=== PATIENT | male | born 1975 | race Caucasian/White ===

== ENCOUNTER 2021-10-31 05:37 | Inpatient (IN) | payer BC ==
[~2021-10-31 05:37] MED LIST: Acetaminophen 500 MG Tab PO ONE; Celecoxib 200 MG Cap PO ONE; Scopolamine 1.5 MG Transdermal Patch TRDERM SCH
[2021-10-31] MEDS ORDERED: Dextrose 5%-Lactated Ringers 1,000 ML IV SCH ×2 (06:00→11:00)
[2021-10-31] MEDS ORDERED: cefOXitin 2 GM Vial ONE (06:57)
[2021-10-31] MEDS ORDERED: fentaNYL 250 MCG/5 ML SDV ONE ×2 (07:08→07:34)
[2021-10-31] MEDS ORDERED: Rocuronium 50 MG/5 ML Vial ONE ×2 (07:09→08:10)
[2021-10-31] MEDS ORDERED: Succinylcholine 200 MG/10 ML MDV ONE (07:09)
[2021-10-31] MEDS ORDERED: Glycopyrrolate 0.2 MG/ML 5 ML MDV ONE (07:09)
[2021-10-31] MEDS ORDERED: Ondansetron 4 MG/2 ML SDV ONE (07:09)
[2021-10-31] MEDS ORDERED: Neostigmine Methylsulfate 1 MG/ML 5 ML Syringe ONE (07:09)
[2021-10-31] MEDS ORDERED: Dexamethasone 4 MG/ML SDV ONE (07:09)
[2021-10-31] MEDS ORDERED: Propofol 200 MG/20 ML SDV ONE (07:09)
[2021-10-31] MEDS ORDERED: cefOXitin 2 GM in Sodium Chloride 0.9% 50 ML IV ONE (07:15)
[2021-10-31] MEDS ORDERED: Ketamine 24 MG in Sodium Chloride 0.9% 19.76 ML IV SCH (07:30)
[2021-10-31] MEDS ORDERED: Ketamine 500 MG/5 ML MDV IV SCH (07:30)
[2021-10-31] MEDS ORDERED: Labetalol 20 MG/4 ML Syringe ONE (08:22)
[2021-10-31] MEDS ORDERED: fentaNYL 50 MCG/ML SDV IVPUSH ONE (09:31)
[2021-10-31] MEDS ORDERED: hydrOXYzine HCL 100 MG/2 ML SDV IM ONE (09:31)
[2021-10-31] MEDS ORDERED: Cyclobenzaprine 10 MG Tab PO PRN (11:08)
[2021-10-31] MEDS: SCOPOLAMINE PATCH CHECK TOP SCH (11:52)
[2021-10-31] MEDS ORDERED: hydrOXYzine HCL 100 MG/2 ML SDV IM PRN (12:00)
[2021-10-31] MEDS ORDERED: Acetaminophen 500 MG Tab PO PRN (12:00)
[2021-10-31] MEDS ORDERED: traMADol 50 MG Tab PO PRN (12:00)
[2021-10-31] MEDS ORDERED: Ondansetron 4 MG/2 ML SDV IVPUSH PRN (12:00)
[2021-10-31] MEDS ORDERED: oxyCODONE 5 MG Tab PO PRN (12:00)
[2021-10-31] MEDS ORDERED: Pantoprazole 40 MG Vial IVPUSH SCH (12:00)
[2021-10-31] MEDS ORDERED: diphenhydrAMINE 50 MG/ML SDV IVPUSH PRN (12:00)
[2021-10-31] MEDS ORDERED: HYDROmorphone 1 MG/ML Syringe IV PRN (12:00)
[2021-10-31] MEDS ORDERED: Metoclopramide 10 MG/2 ML SDV IVPUSH PRN (12:00)
[2021-10-31] MEDS ORDERED: Labetalol 20 MG/4 ML Syringe IVPUSH PRN (12:00)
[2021-10-31] MEDS: HYDROmorphone 0.5 MG/0.5 ML Syringe IVPUSH PRN ×2 (12:33→15:40)
[2021-10-31] MEDS: Acetaminophen 500 MG Tab PO SCH ×2 (15:39→22:27)
[2021-10-31] MEDS: cefOXitin 2 GM in Sodium Chloride 0.9% 50 ML IV SCH ×2 (15:40→19:29)
[2021-10-31] MEDS: MVI, Adult with Vitamin K 10 ML, Thiamine 200 MG, Zinc/Copper/Manganese/Selenium 1 ML i... IV SCH ×4 (15:46)
[2021-10-31] MEDS: Heparin Sodium 5,000 Units/ML Vial SUBCUT SCH ×2 (15:49→23:20)
[2021-10-31] MEDS: Dextrose 5%-Lactated Ringers 1,000 ML IV SCH (23:19)
[2021-11-01] MEDS ORDERED: Iopamidol 612 MG/ML 50 ML SDV PO STA (01:30)
[2021-11-01] MEDS: cefOXitin 2 GM in Sodium Chloride 0.9% 50 ML IV SCH ×4 (02:08→20:06)
[2021-11-01] MEDS: Acetaminophen 500 MG Tab PO SCH ×3 (05:41→21:04)
[2021-11-01] MEDS: Dextrose 5%-Lactated Ringers 1,000 ML IV SCH (05:41)
[2021-11-01] MEDS ORDERED: Ondansetron 4 MG Tab.DIS PO PRN (07:25)
[2021-11-01] MEDS ORDERED: Dextrose 5%-Lactated Ringers 1,000 ML IV SCH (07:30)
[2021-11-01] MEDS: Heparin Sodium 5,000 Units/ML Vial SUBCUT SCH ×2 (08:35→15:01)
[2021-11-01] MEDS: SCOPOLAMINE PATCH CHECK TOP SCH (08:36)
[2021-11-01] MEDS: Celecoxib 200 MG Cap PO SCH ×2 (08:36→21:04)
[2021-11-01] MEDS: Escitalopram 10 MG Tab PO SCH (08:36)
[2021-11-01] MEDS: hydrOXYzine HCl 25 MG Tab PO PRN ×2 (09:26→13:32)
[2021-11-01] MEDS: MVI, Adult with Vitamin K 10 ML, Thiamine 200 MG, Zinc/Copper/Manganese/Selenium 1 ML i... IV SCH ×4 (15:01)
[2021-11-01] MEDS ORDERED: Pantoprazole 40 MG Delayed-Release Granules 1 Packet PO SCH (16:30)
[2021-11-02] MEDS: Heparin Sodium 5,000 Units/ML Vial SUBCUT SCH ×2 (01:00→08:22)
[2021-11-02] MEDS: Escitalopram 10 MG Tab PO SCH (08:22)
[2021-11-02] MEDS: Acetaminophen 500 MG Tab PO SCH (08:22)
[2021-11-02] MEDS: Celecoxib 200 MG Cap PO SCH (08:22)
[2021-11-02] MEDS: SCOPOLAMINE PATCH CHECK TOP SCH (08:23)
[2021-11-02] MEDS ORDERED: Cyanocobalamin (Vitamin B12) 1,000 MCG/ML SDV IM ONE (09:00)
== END 2021-11-02 14:00 | disposition home or self-care (01) | DRG 403 ==
LOC: JP.SDS 05:37 → EDSTATUS 07:15 → JP.MS 09:20
PROVIDERS: ADMIT Surgery; ATTEND Surgery
PROC: 0D164ZA Bypass Stomach to Jejunum, Percutaneous Endoscopic Approach (ICD-10-PCS; principal; 2021-10-31)
PROC: 0DB64ZZ Excision of Stomach, Percutaneous Endoscopic Approach (ICD-10-PCS; 2021-10-31)
PROC: 0BQT4ZZ Repair Diaphragm, Percutaneous Endoscopic Approach (ICD-10-PCS; 2021-10-31)
PROC: 0DB84ZZ Excision of Small Intestine, Percutaneous Endoscopic Approach (ICD-10-PCS; 2021-10-31)
PROC: 0FB24ZX Excision of Left Lobe Liver, Percutaneous Endoscopic Approach, Diagnostic (ICD-10-PCS; 2021-10-31)
DX: E66.01 Morbid (severe) obesity due to excess calories (principal); R16.0 Hepatomegaly, not elsewhere classified; K44.9 Diaphragmatic hernia without obstruction or gangrene; G47.33 Obstructive sleep apnea (adult) (pediatric); F41.9 Anxiety disorder, unspecified; F32.A Depression, unspecified; I10 Essential (primary) hypertension; Z87.891 Personal history of nicotine dependence; Z68.41 Body mass index [BMI] 40.0-44.9, adult; K31.89 Other diseases of stomach and duodenum
CPT/HCPCS: 36415; 74240; 74240-26; 80053; 83735; 84100; 85027; 86850; 86900; 86901; A9270-GY; C9113; J0171; J0330; J0694; J1100; J1170; J1644; J2405; J2704; J2710; J2795; J3010; J3410; J3411; J3420; J3490; J7121; Q9967